=== PATIENT | female | born 1985 | race Caucasian/White ===

== ENCOUNTER 2017-12-11 18:19 | Emergency (ER) | payer OTHER | END 2017-12-11 19:13 | disposition home or self-care (01) | LOC: E/R 18:19 | DX: H65.02 Acute serous otitis media, left ear (principal) | CPT/HCPCS: 99283; Z7502 ==

== ENCOUNTER 2017-12-21 15:53 | Emergency (ER) | payer OTHER | END 2017-12-21 17:46 | disposition home or self-care (01) | LOC: E/R 15:53 → FTE 17:46 | DX: T16.2XXA Foreign body in left ear, initial encounter (principal); H61.22 Impacted cerumen, left ear; X58.XXXA Exposure to other specified factors, initial encounter; Y92.9 Unspecified place or not applicable | CPT/HCPCS: 69209; 99282-25 ==

== ENCOUNTER 2018-01-01 09:02 | Inpatient (IN) | payer OTHER ==
[~2018-01-01 09:02] MED LIST: CARBOPROST 250 MCG INJ
[2018-01-01] MEDS ORDERED: LACTATED RINGER'S 1,000 ML IV ×2 (10:27→10:32)
[2018-01-01] MEDS ORDERED: CARBOPROST 250 MCG INJ IM ×3 (10:30→18:30)
[2018-01-01] MEDS ORDERED: OXYTOCIN 30 UNITS/LR 500 ML IV ×7 (10:30→18:30)
[2018-01-01] MEDS ORDERED: LIDOCAINE 1% (MPF) 30 ML INJ INJ ×2 (10:30→11:00)
[2018-01-01] MEDS ORDERED: METHYLERGONOVINE 0.2 MG INJ IM ×3 (10:30→18:30)
[2018-01-01] MEDS ORDERED: IBUPROFEN 600 MG TAB PO (10:30)
[2018-01-01] MEDS ORDERED: BUTORPHANOL 2 MG INJ IV ×2 (10:30→11:00)
[2018-01-01] MEDS: AMPICILLIN 2 GM/NS (PMX) 100 ML IV (11:00)
[2018-01-01] MEDS ORDERED: MISOPROSTOL 200 MCG TAB PR ×2 (11:00→18:30)
[2018-01-01 11:45] LABS: ADD MAN DIFF? NO
[2018-01-01 11:48] LABS: BASOPHILS % 0.3 % (0.0-2.0); EOSINOPHILS # 0.1 10^3/ul (0.0-0.5); EOSINOPHILS % 1.6 % (0.0-7.0); HEMATOCRIT 37.4 % (37.0-47.0); HEMOGLOBIN 12.5 g/dl (12.0-16.0); LYMPHOCYTES # 1.8 10^3/ul (0.8-2.9); LYMPHOCYTES % 19.8 % (15.0-51.0); MEAN CORPUSCULAR HEMOGLOBIN 27.9 pg (29.0-33.0); MEAN CORPUSCULAR HGB CONC 33.4 g/dl (32.0-37.0); MEAN CORPUSCULAR VOLUME 83.5 fl (82.0-101.0); MEAN PLATELET VOLUME 10.8 fl (7.4-10.4); MONOCYTE # 0.6 10^3/ul (0.3-0.9); MONOCYTES % 6.6 % (0.0-11.0); NEUTROPHIL # 6.4 10^3/ul (1.6-7.5); NEUTROPHILS % 71.3 % (39.0-77.0); PLATELET COUNT 204 10^3/UL (140-415); RED BLOOD COUNT 4.48 10^6/ul (4.20-5.40); RED CELL DISTRIBUTION WIDTH 13.5 % (11.5-14.5)
[2018-01-01 11:48] LABS: WHITE BLOOD COUNT 8.9 10^3/ul (4.8-10.8)
[2018-01-01 12:15] LABS: ALANINE AMINOTRANSFERASE 28 IU/L (13-69); ALBUMIN 3.3 g/dl (3.3-4.9); ALBUMIN/GLOBULIN RATIO 1.03; ALKALINE PHOSPHATASE 126 IU/L (42-121); ANION GAP 13 (8-16); ASPARTATE AMINO TRANSFERASE 17 IU/L (15-46); BILIRUBIN,INDIRECT 0.2 mg/dl (0-1.1); BILIRUBIN,TOTAL 0.2 mg/dl (0.2-1.3); BLOOD UREA NITROGEN 10 mg/dl (7-20); CALCIUM 8.8 mg/dl (8.4-10.2); CARBON DIOXIDE 22 mmol/L (21-31); CHLORIDE 109 mmol/L (97-110); GLUCOSE 86 mg/dl (70-220); POTASSIUM 3.7 mmol/L (3.5-5.1); SODIUM 140 mmol/L (135-144); TOTAL PROTEIN 6.5 g/dl (6.1-8.1); URIC ACID 5.4 mg/dl (3.1-7.9)
[2018-01-01 12:21] LABS: INR 0.87; PROTIME 11.9 Sec (11.9-14.9); PT RATIO 0.9
[2018-01-01 12:22] LABS: PARTIAL THROMBOPLASTIN TIME 27.5 Sec (25.0-35.0)
[2018-01-01 12:35] LABS: FIBRIN SPLIT PRODUCT <10 ug/ml (<10)
[2018-01-01 12:45] LABS: HEPATITIS B SURFACE ANTIGEN NEGATIVE (NEGATIVE)
[2018-01-01] MEDS ORDERED: MAGNESIUM SULFATE 4 GM/100 ML 100 ML (12:48)
[2018-01-01] MEDS: MAGNESIUM SULFATE 4 GM/100 ML 100 ML IV (12:57)
[2018-01-01] MEDS: MISOPROSTOL 25 MCG CAPSULE PO (13:23)
[2018-01-01] MEDS: MAGNESIUM SULFATE 20 GM/500 ML 500 ML IV ×2 (13:25→20:00)
[2018-01-01 14:59] LABS: ADD UMIC YES; UR ASCORBIC ACID NEGATIVE (NEGATIVE); UR BACTERIA FEW /HPF (NONE SEEN); UR BILIRUBIN (Dip) NEGATIVE (NEGATIVE); UR BLOOD (Dip) NEGATIVE (NEGATIVE); UR CLARITY SLIGHTLY CLOUDY (CLEAR); UR COLOR YELLOW (YELLOW); UR GLUCOSE (Dip) NEGATIVE (NEGATIVE); UR KETONES (Dip) NEGATIVE (NEGATIVE); UR LEUKOCYTE ESTERASE (Dip) NEGATIVE Leu/ul (NEGATIVE); UR MUCUS FEW /HPF (NONE SEEN); UR NITRITE (Dip) NEGATIVE (NEGATIVE); UR RBC 4 /HPF (0-5); UR SPECIFIC GRAVITY (Dip) 1.015 (1.003-1.030); UR SQUAMOUS EPITHELIAL CELL MODERATE /HPF (FEW); UR TOTAL PROTEIN (Dip) 1+ mg/dl (NEGATIVE); UR UROBILINOGEN (Dip) NEGATIVE (NEGATIVE); UR WBC 2 /HPF (0-5)
[2018-01-01] MEDS ORDERED: AMPICILLIN 1 GM/NS (PMX) 50 ML IV (15:00)
[2018-01-01] MEDS ORDERED: NIFEdipine (XL) 30 MG TAB PO ×2 (16:00→16:30)
[2018-01-01] MEDS: hydrALAzine 20 MG INJ IV (16:01)
[2018-01-01] MEDS: LABETALOL 200 MG TAB PO (17:02)
[2018-01-01] MEDS: MISOPROSTOL 200 MCG TAB PR (17:03)
[2018-01-01] MEDS ORDERED: TERBUTALINE 1 ML (17:40)
[2018-01-01] MEDS: TERBUTALINE 1 MG/ML INJ SC (17:46)
[2018-01-01] MEDS ORDERED: SUCCINYLCHOLINE CHLORIDE 100 MG/5 ML SYG IV (17:48)
[2018-01-01] MEDS ORDERED: LIDOCAINE 2% (SDV) 5 ML INJ (17:48)
[2018-01-01] MEDS ORDERED: PROPOFOL 20 ML (17:48)
[2018-01-01] MEDS ORDERED: CEFAZOLIN 2 GM/50 ML (PMX) 50 ML IVPB (17:51)
[2018-01-01] MEDS: CEFAZOLIN 2 GM/50 ML (PMX) 50 ML IV (17:53)
[2018-01-01] MEDS ORDERED: CITRIC ACID/SODIUM CITRATE 15 ML CUP (17:53)
[2018-01-01] MEDS ORDERED: HYDROmorphONE 2 MG/ML SYG (18:04)
[2018-01-01] MEDS ORDERED: SUGAMMADEX SODIUM 200 MG/2 ML VIAL IV ×2 (18:12→18:20)
[2018-01-01] MEDS ORDERED: LABETALOL HCL 20MG INJ (18:15)
[2018-01-01] MEDS ORDERED: HYDROCODONE/APAP (5/325) TAB PO (18:30)
[2018-01-01] MEDS ORDERED: ROCURONIUM 50 MG INJ (18:31)
[2018-01-01] MEDS ORDERED: HYDROmorphONE (0.2 MG/ML) 10ML SYG IV ×2 (19:30)
[2018-01-01] MEDS ORDERED: PROCHLORPERAZINE 10 MG INJ IV (19:30)
[2018-01-01] MEDS ORDERED: MEPERIDINE 25 MG INJ IV (19:30)
[2018-01-01] MEDS ORDERED: LABETALOL HCL 20MG INJ IV ×4 (19:30→23:30)
[2018-01-01] MEDS ORDERED: ONDANSETRON 4 MG INJ IV (19:30)
[2018-01-01] MEDS ORDERED: DIPHENHYDRAMINE 50 MG INJ IV ×2 (19:30)
[2018-01-01] MEDS ORDERED: FENTAnyl 50 MCG/ML VIAL IV ×3 (19:30)
[2018-01-01] MEDS ORDERED: NALOXONE (0.4 MG/ML) INJ IV (19:30)
[2018-01-01] MEDS ORDERED: HYDROmorphONE 0.5 MG/0.5 ML SYG IV ×2 (19:30)
[2018-01-01] MEDS: KETOROLAC 30 MG INJ IV (19:38)
[2018-01-01] MEDS: HYDROmorphONE (0.2 MG/ML) 10ML SYG IV (19:44)
[2018-01-01] MEDS: ONDANSETRON 4 MG INJ IV (19:51)
[2018-01-01] MEDS: LABETALOL HCL 20MG INJ IV ×2 (21:36→23:03)
[2018-01-01] MEDS: HYDROmorphONE 0.2 MG/ML PCA IV (22:47)
[2018-01-01] MEDS: OXYTOCIN 30 UNITS/LR 500 ML IV (23:01)
[2018-01-01 23:16] LABS: RAPID PLASMA REAGIN NONREACTIVE (NR)
[2018-01-02 01:31] LABS: MAGNESIUM 3.9 mg/dl (1.7-2.5)
[2018-01-02] MEDS: CEFAZOLIN 1 GM/50 ML (PMX) 50 ML IV (02:21)
[2018-01-02] MEDS: KETOROLAC 30 MG INJ IV (02:24)
[2018-01-02] MEDS: CITRIC ACID/SODIUM CITRATE 15 ML CUP PO (02:46)
[2018-01-02] MEDS: LACTATED RINGER'S 1,000 ML IV (05:27)
[2018-01-02] MEDS: MAGNESIUM SULFATE 20 GM/500 ML 500 ML IV ×2 (05:29→15:00)
[2018-01-02] MEDS: LABETALOL HCL 20MG INJ IV ×3 (06:00→21:47)
[2018-01-02 06:33] LABS: ADD MAN DIFF? NO
[2018-01-02 06:42] LABS: WHITE BLOOD COUNT 13.8 10^3/ul (4.8-10.8)
[2018-01-02 06:42] LABS: BASOPHILS % 0.1 % (0.0-2.0); HEMATOCRIT 29.7 % (37.0-47.0); HEMOGLOBIN 10.2 g/dl (12.0-16.0); LYMPHOCYTES # 1.6 10^3/ul (0.8-2.9); LYMPHOCYTES % 11.6 % (15.0-51.0); MEAN CORPUSCULAR HEMOGLOBIN 28.5 pg (29.0-33.0); MEAN CORPUSCULAR HGB CONC 34.3 g/dl (32.0-37.0); MONOCYTE # 0.8 10^3/ul (0.3-0.9); MONOCYTES % 5.7 % (0.0-11.0); NEUTROPHIL # 11.3 10^3/ul (1.6-7.5); NEUTROPHILS % 82.2 % (39.0-77.0); PLATELET COUNT 183 10^3/UL (140-415); RED BLOOD COUNT 3.58 10^6/ul (4.20-5.40); RED CELL DISTRIBUTION WIDTH 13.6 % (11.5-14.5)
[2018-01-02 07:01] LABS: MAGNESIUM 4.3 mg/dl (1.7-2.5)
[2018-01-02] MEDS: CEFAZOLIN 1 GM/50 ML (PMX) 50 ML IVPB ×2 (10:27→17:49)
[2018-01-02 13:14] LABS: ADD MAN DIFF? NO
[2018-01-02 13:17] LABS: BASOPHILS % 0.2 % (0.0-2.0); EOSINOPHILS % 0.4 % (0.0-7.0); HEMATOCRIT 30.7 % (37.0-47.0); HEMOGLOBIN 10.2 g/dl (12.0-16.0); LYMPHOCYTES # 1.3 10^3/ul (0.8-2.9); LYMPHOCYTES % 11.6 % (15.0-51.0); MEAN CORPUSCULAR HGB CONC 33.2 g/dl (32.0-37.0); MEAN CORPUSCULAR VOLUME 84.3 fl (82.0-101.0); MEAN PLATELET VOLUME 10.6 fl (7.4-10.4); MONOCYTE # 0.7 10^3/ul (0.3-0.9); NEUTROPHIL # 9.1 10^3/ul (1.6-7.5); NEUTROPHILS % 81.4 % (39.0-77.0); PLATELET COUNT 183 10^3/UL (140-415); RED BLOOD COUNT 3.64 10^6/ul (4.20-5.40); RED CELL DISTRIBUTION WIDTH 13.8 % (11.5-14.5)
[2018-01-02 13:17] LABS: WHITE BLOOD COUNT 11.2 10^3/ul (4.8-10.8)
[2018-01-02 13:34] LABS: MAGNESIUM 4.5 mg/dl (1.7-2.5)
[2018-01-02] MEDS ORDERED: HYDROCODONE/APAP (5/325) TAB PO (17:00)
[2018-01-02] MEDS: IBUPROFEN 600 MG TAB PO (17:49)
[2018-01-02] MEDS ORDERED: LABETALOL 200 MG TAB PO (18:00)
[2018-01-02 18:04] LABS: MAGNESIUM 4.4 mg/dl (1.7-2.5)
[2018-01-02] MEDS ORDERED: DEXTROSE 50% 50 ML SYRINGE IV ×2 (21:15)
[2018-01-02] MEDS ORDERED: GLUCOSE GEL 15 GRAM TUBE PO ×2 (21:15)
[2018-01-02] MEDS ORDERED: GLUCAGON 1 MG INJ IM (21:15)
[2018-01-02] MEDS ORDERED: GLUCOSE GEL 15 GRAM TUBE BUCCAL (21:15)
[2018-01-02] MEDS: DOCUSATE SODIUM 100 MG CAP PO (21:44)
[2018-01-02] MEDS: INSULIN ASPART [NOVOLOG] 3 ML PEN SC (21:55)
[2018-01-02] MEDS: ACCU-CHEK XX (22:01)
[2018-01-03] MEDS: IBUPROFEN 600 MG TAB PO ×4 (00:05→18:06)
[2018-01-03] MEDS: LABETALOL HCL 20MG INJ IV ×3 (06:00→22:00)
[2018-01-03] MEDS ORDERED: ACCU-CHEK XX ×3 (07:30→07:35)
[2018-01-03] MEDS ORDERED: INSULIN ASPART [NOVOLOG] 3 ML PEN SC (08:05)
[2018-01-03] MEDS: ACCU-CHEK XX ×4 (08:13→21:00)
[2018-01-03] MEDS: DOCUSATE SODIUM 100 MG CAP PO ×2 (09:16→22:02)
[2018-01-03 11:47] LABS: HEMOGLOBIN A1C 6.1 % (0-5.9)
[2018-01-03] MEDS: INSULIN ASPART [NOVOLOG] 3 ML PEN SC ×3 (11:50→21:00)
[2018-01-04] MEDS: IBUPROFEN 600 MG TAB PO ×3 (01:27→12:30)
[2018-01-04] MEDS: ACCU-CHEK XX ×3 (01:34→12:19)
[2018-01-04] MEDS: LABETALOL HCL 20MG INJ IV (05:08)
[2018-01-04] MEDS: INSULIN ASPART [NOVOLOG] 3 ML PEN SC ×2 (08:05→11:50)
[2018-01-04] MEDS: DOCUSATE SODIUM 100 MG CAP PO (10:02)
== END 2018-01-04 17:40 | disposition home or self-care (01) | DRG 766 ==
LOC: L-D 09:02 → PP1 01-02 09:36 → L-D 17:46
PROVIDERS: Obstetrics & Gynecology
PROC: 10D00Z1 Extraction of Products of Conception, Low, Open Approach (ICD-10-PCS; principal; 2018-01-01)
DX: O14.14 Severe pre-eclampsia complicating childbirth (principal); O24.429 Gestational diabetes mellitus in childbirth, unspecified control; O76 Abnormality in fetal heart rate and rhythm complicating labor and delivery; Z37.0 Single live birth; Z3A.38 38 weeks gestation of pregnancy
CPT/HCPCS: 76815; 80053; 81001; 82962; 83036; 83735; 84560; 85025; 85362; 85384; 85610; 85730; 86592; 86900; 86901; 87340; 99464